=== PATIENT | female | born 1965 | race Two or more races ===

== ENCOUNTER → 2016-07-05 | Outpatient (CLI) | payer OTHER | LOC: BRMIMAGING 09:57 | PROVIDERS: ATTEND Internal Medicine | DX: M17.0 Bilateral primary osteoarthritis of knee (principal); R76.0 Raised antibody titer | CPT/HCPCS: 73130-PO; 73562-PO ==

== ENCOUNTER → 2018-09-13 | Outpatient (CLI) | payer BC, MEDICAID | LOC: BRMIMAGING 09:37 ==